=== PATIENT | female | born 1950 | race Hispanic/Latino ===

== ENCOUNTER 2017-11-07 14:46 | Outpatient (CLI) | payer MEDICARE, OTHER | END 2017-11-07 14:47 | disposition home or self-care (01) | LOC: BICMAMMO 14:46 | PROVIDERS: ATTEND Family Medicine | DX: Z12.31 Encounter for screening mammogram for malignant neoplasm of breast (principal); Z80.3 Family history of malignant neoplasm of breast | CPT/HCPCS: 77063; 77067 ==

== ENCOUNTER 2018-07-24 13:48 | Outpatient (CLI) | payer MEDICARE, OTHER ==
--- NOTE | 2018-07-24 16:26 | ULT ---
THYROID ULTRASOUND: INDICATION: Thyromegaly. TECHNIQUE: Brito scale color Doppler images were obtained of the thyroid gland. FINDINGS: The right thyroid lobe measures 4.3 x 1.8 x 1.4 cm. The left thyroid lobe measures 4.0 x 1.7 x 1.5 cm. The thyroid isthmus measured 0.5 cm. There is a 0.8 x 0.7 x 0.8 cm mixed echogenicity solid nodule involving the superior pole of the left thyroid gland consistent with a TIRADS 4 lesion. IMPRESSION: TIRADS 4 lesion in the superior pole left thyroid gland. This lesion is less than 1 cm in size. No additional followup is recommended. POS: MARY
== END 2018-07-24 13:49 | disposition home or self-care (01) ==
LOC: SCSULT 13:48
PROVIDERS: ATTEND Family Medicine
DX: E01.0 Iodine-deficiency related diffuse (endemic) goiter (principal); E07.9 Disorder of thyroid, unspecified
CPT/HCPCS: 76536

== ENCOUNTER 2019-01-17 14:38 | Outpatient (CLI) | payer MEDICARE, OTHER ==
--- NOTE | 2019-01-17 16:41 | BD ---
BONE DENSITOMETRY USING DEXA: Date: 01/17/19 HISTORY: Postmenopausal screening for osteoporosis. FINDINGS: Lumbar Spine: BMD (g/cm2) L1 0.700 T-Score: -2.6 Z-Score: -1.0 L2 0.723 T-Score: -2.8 Z-Score: -0.9 L3 0.858 T-Score: -2.1 Z-Score: -0.1 L4 0.794 T-Score: -2.4 Z-Score: -0.4 L1-L4 0.772 T-Score: -2.5 Z-Score: -0.6 Femoral Neck: 0.529 T-Score: -2.9 Z-Score: -1.4 Total Femur: 0.708 T-Score: -1.9 Z-Score: -0.6 IMPRESSION: Osteoporosis. POS: CRIS
--- NOTE | 2019-01-22 13:24 | MMO ---
Bilateral MAMMO Bilat Screen [facility]. CLINICAL HISTORY: Patient is 68 years old and is seen for screening. The patient has the following family history of breast cancer: cousin female, malignant (generic). The patient has no personal history of cancer. The patient has a history of right Cyst Aspiration in 1998 - benign. VIEWS: The views performed were: bilateral craniocaudal with tomosynthesis and bilateral mediolateral oblique with tomosynthesis. FILMS COMPARED: The present examination has been compared to prior imaging studies performed at [facility] on 11/07/2017, and at [facility] on 04/22/2016. MAMMOGRAM FINDINGS: There are scattered fibroglandular densities. There are no suspicious masses, suspicious calcifications, or new areas of architectural distortion. IMPRESSION: THERE IS NO MAMMOGRAPHIC EVIDENCE OF MALIGNANCY. A ROUTINE FOLLOW-UP MAMMOGRAM IN 1 YEAR IS RECOMMENDED. THE RESULTS OF THIS EXAM WERE SENT TO THE PATIENT. ACR BI-RADS Category 1 - Negative MAMMOGRAPHY NOTE: 1. A negative mammogram report should not delay a biopsy if a dominant of clinically suspicious mass is present. 2. Approximately 10% to 15% of breast cancers are not detected by mammography. 3. Adenosis and dense breasts may obscure an underlying neoplasm.
== END 2019-01-17 14:39 | disposition home or self-care (01) ==
LOC: BICMAMMO 14:38
PROVIDERS: ATTEND Family Medicine
DX: Z12.31 Encounter for screening mammogram for malignant neoplasm of breast (principal); M85.80 Other specified disorders of bone density and structure, unspecified site; M81.0 Age-related osteoporosis without current pathological fracture; Z80.3 Family history of malignant neoplasm of breast; Z98.890 Other specified postprocedural states
CPT/HCPCS: 77063; 77067; 77080

== ENCOUNTER 2020-11-27 12:57 | Outpatient (CLI) | payer MEDICARE, OTHER | END 2020-11-27 12:58 | disposition home or self-care (01) | LOC: BICMAMMO 12:57 | PROVIDERS: ATTEND Family Medicine | DX: Z12.31 Encounter for screening mammogram for malignant neoplasm of breast (principal); Z80.3 Family history of malignant neoplasm of breast | CPT/HCPCS: 77063; 77067 ==

== ENCOUNTER 2020-12-23 12:06 | Outpatient (CLI) | payer MEDICARE, OTHER ==
[2020-12-24 05:21] LABS: SARS-CoV-2 PCR by NAA Not Detected (NotDetected)
== END 2020-12-23 12:07 | disposition home or self-care (01) ==
LOC: LABBT 12:06
PROVIDERS: ATTEND Family Medicine
DX: Z01.812 Encounter for preprocedural laboratory examination (principal); Z20.822 Contact with and (suspected) exposure to COVID-19
CPT/HCPCS: U0003; U0005; 87635

== ENCOUNTER 2020-12-26 13:45 | Outpatient (CLI) | payer MEDICARE, OTHER ==
--- NOTE | 2020-12-26 17:05 | RAD ---
Barium swallow: 12/26/2020 COMPARISON: None HISTORY: Dysphasia FINDINGS: The emt i/85 radiograph demonstrates mild increased linear interstitial density with no pneumo thorax, pleural fluid, focal consolidation, or alveolar edema. A double contrast barium esophagram is performed. The esophagus appears normal in course and contour. Peristalsis appears normal. No gastroesophageal reflux could be elicited on this exam. No evidence for a hiatal hernia. The patient ingested a barium tablet which traverses the gastroesophageal junction without delay. Exposure data: 0.8 minutes of fluoroscopic time, 5.4 jeffries per centimeter squared IMPRESSION: Grossly unremarkable barium swallow.
== END 2020-12-26 13:46 | disposition home or self-care (01) ==
LOC: RAD 13:45
PROVIDERS: ATTEND Family Medicine
DX: R13.10 Dysphagia, unspecified (principal)
CPT/HCPCS: 74220

== ENCOUNTER 2021-02-17 10:59 | Outpatient (CLI) | payer OTHER | END 2021-02-17 11:00 | disposition home or self-care (01) | LOC: DTY/OP 10:59 | PROVIDERS: ATTEND Family Medicine | DX: E78.5 Hyperlipidemia, unspecified (principal); I10 Essential (primary) hypertension | CPT/HCPCS: 97802 ==

== ENCOUNTER 2022-04-14 14:54 | Outpatient (CLI) | payer MEDICARE, OTHER | END 2022-04-14 14:55 | disposition home or self-care (01) | LOC: BICMAMMO 14:54 | PROVIDERS: ATTEND Family Medicine | DX: Z12.31 Encounter for screening mammogram for malignant neoplasm of breast (principal); Z98.890 Other specified postprocedural states; Z80.3 Family history of malignant neoplasm of breast | CPT/HCPCS: 77063; 77067 ==

== ENCOUNTER 2023-05-26 13:52 | Outpatient (CLI) | payer MEDICARE, OTHER | END 2023-05-26 13:53 | disposition home or self-care (01) | LOC: ULT 13:52 | PROVIDERS: ATTEND Nurse Practitioner Family | DX: R55 Syncope and collapse (principal) | CPT/HCPCS: 93880 ==

== ENCOUNTER 2023-10-31 12:12 | Inpatient (IN) | payer OTHER, MEDICARE ==
[~2023-10-31 12:12] MED LIST: Iopamidol-370 76% 500 ML MDV (1 ML CHARGE) ONE
[2023-10-31] MEDS ORDERED: Ondansetron PF 4 MG/2 ML Vial ONE (12:19)
[2023-10-31] MEDS ORDERED: Morphine 4 MG/ML VIAL ONE ×2 (12:19→15:15)
[2023-10-31 12:34] LABS: #Basophils 0.1 thou/uL (0.0-0.2); #Eosinphils 0.1 thou/uL (0.0-0.7); #Monocytes 0.5 thou/uL (0.11-0.59); #Neutrophils 6.1 thou/uL (1.40-6.50); %Basophils 0.6 % (0.0-1.0); %Eosinophils 0.6 % (0.0-10.0); %Lymphocytes 33.4 % (21.0-51.0); %Monocytes 4.9 % (0.0-10.0); %Neutrophils 59.1 % (42.0-75.0); Hematocrit 39.2 % (36.0-47.0); Hemoglobin 13.1 g/dL (12.0-16.0); Mean Corpuscular HGB CONC 33.4 g/dL (32.0-36.0); Mean Corpuscular Hemoglobin 31.3 pg (27.0-31.0); Mean Corpuscular Volume 93.6 fl (78.0-98.0); Mean Platelet Volume 10.8 fL (7.4-10.4); Platelet Count 152 10x3/uL (130-400); RBC Distribution Width 12.8 % (11.5-14.5); Red Blood Cell (RBC) Count 4.19 mill/uL (4.20-5.40); White Blood Cell (WBC) Count 10.2 10x3/uL (4.8-10.8)
[2023-10-31 12:58] LABS: INR-International Normal Ratio 0.9; Prothrombin Time 12.1 sec (12.0-14.7)
[2023-10-31 12:59] LABS: PTT 25.5 sec (22.9-36.1)
[2023-10-31 13:00] LABS: ALT (SGPT) 14 U/L (8-55); AST (SGOT) 27 U/L (5-34); Albumin 3.9 g/dL (3.4-4.8); Alcohol Less than 10.0 mg/dL (Less than 10); Alkaline Phosphatase 51 U/L (40-110); Anion Gap 16 mmol/L (10-20); BUN (Urea Nitrogen) 13 mg/dL (9.8-20.1); Bilirubin, Total 0.7 mg/dL (0.2-1.2); Calc. Creatinine Clearance 0 mL/min (70-130); Calcium 9.2 mg/dL (7.8-10.44); Carbon Dioxide 16 mmol/L (23-31); Chloride 107 mmol/L (98-107); Estimated GFR 88; Globulin 2.8 g/dL (2.4-3.5); Glucose 126 mg/dL (83-110); Lipase 37 U/L (8-78); Protein, Total 6.7 g/dL (5.8-8.1); Sodium 135 mmol/L (136-145)
[2023-10-31] MEDS ORDERED: traMADol HCl 50 MG TAB PO PRN (15:25)
[2023-10-31] MEDS ORDERED: Acetaminophen 325 MG TAB PO PRN (15:25)
[2023-10-31] MEDS ORDERED: Dextrose 5% in Water 1,000 ML IV PRN (15:25)
[2023-10-31] MEDS ORDERED: HYDROcodone/Acetaminophen 5/325 mg Tablet PO PRN (15:25)
[2023-10-31] MEDS ORDERED: Glucagon 1 MG/ML KIT IM PRN (15:25)
[2023-10-31] MEDS ORDERED: Dextrose 50% Abboject 50 ML SYRINGE SLOW IVP PRN (15:25)
[2023-10-31] MEDS ORDERED: Rib Fracture Protocol PO SCH ×2 (15:30→17:30)
[2023-10-31 15:33] LABS: Lactic Acid 1.1 mmol/L (0.5-2.2)
[2023-10-31] MEDS ORDERED: Lidocaine 4% Patch TD SCH (15:48)
[2023-10-31 16:01] LABS: Troponin I Less than 0.010 ng/mL (< 0.028)
[2023-10-31] MEDS ORDERED: hydrALAZINE 20 MG/ML VIAL SLOW IVP PRN (16:15)
[2023-10-31] MEDS ORDERED: Cyclobenzaprine 10 MG TAB PO PRN (17:23)
[2023-10-31 17:27] VITALS: BMI 26.4
[2023-10-31] MEDS: traMADol HCl 50 MG TAB PO SCH (18:30)
[2023-10-31] MEDS: Lidocaine 4% Patch TD SCH (18:30)
[2023-10-31] MEDS: Acetaminophen 500 MG TAB PO SCH (18:30)
[2023-10-31] MEDS: Ipratropium/Albuterol 3 ML NEB NEB SCH ×2 (19:41→22:26)
[2023-10-31] MEDS: Gabapentin 100 MG CAP PO SCH (22:48)
[2023-10-31] MEDS: Ibuprofen 200 MG TAB PO SCH (22:48)
[2023-11-01] MEDS: Acetaminophen 500 MG TAB PO SCH ×5 (00:42→23:17)
[2023-11-01] MEDS: traMADol HCl 50 MG TAB PO SCH ×5 (00:43→23:18)
[2023-11-01] MEDS: Ibuprofen 200 MG TAB PO SCH ×3 (06:29→23:17)
[2023-11-01] MEDS: Transdermal Patch Removal TOP SCH (06:30)
[2023-11-01 08:14] LABS: #Eosinphils 0.1 thou/uL (0.0-0.7); #Monocytes 0.7 thou/uL (0.11-0.59); %Basophils 0.3 % (0.0-1.0); %Eosinophils 0.7 % (0.0-10.0); %Lymphocytes 20.1 % (21.0-51.0); %Monocytes 9.3 % (0.0-10.0); %Neutrophils 69.3 % (42.0-75.0); Hematocrit 36.8 % (36.0-47.0); Hemoglobin 12.3 g/dL (12.0-16.0); Mean Corpuscular HGB CONC 33.4 g/dL (32.0-36.0); Mean Corpuscular Hemoglobin 31.1 pg (27.0-31.0); Mean Corpuscular Volume 93.2 fl (78.0-98.0); Platelet Count 183 10x3/uL (130-400); RBC Distribution Width 12.8 % (11.5-14.5); Red Blood Cell (RBC) Count 3.95 mill/uL (4.20-5.40); White Blood Cell (WBC) Count 7.2 10x3/uL (4.8-10.8)
[2023-11-01 08:55] LABS: Anion Gap 11 mmol/L (10-20); BUN (Urea Nitrogen) 7 mg/dL (9.8-20.1); Calc. Creatinine Clearance 77 mL/min (70-130); Carbon Dioxide 25 mmol/L (23-31); Chloride 106 mmol/L (98-107); Estimated GFR 94; Glucose 90 mg/dL (83-110); Potassium 3.7 mmol/L (3.5-5.1); Sodium 138 mmol/L (136-145)
[2023-11-01] MEDS ORDERED: Lidocaine 4% Patch TD SCH (09:00)
[2023-11-01] MEDS ORDERED: FLU VACC QS2023(65UP)/MF59C/PF 60 MCG/0.5 ML SYRINGE IM ONE (09:00)
[2023-11-01] MEDS: Enoxaparin 30 MG (0.3 mL) SYRINGE SC SCH (10:28)
[2023-11-01] MEDS: Gabapentin 100 MG CAP PO SCH ×3 (10:31→20:03)
[2023-11-01] MEDS: Ipratropium/Albuterol 3 ML NEB NEB SCH ×3 (10:50→19:25)
[2023-11-01] MEDS: Lidocaine 4% Patch TD SCH (17:10)
[2023-11-02] MEDS: Ipratropium/Albuterol 3 ML NEB NEB SCH ×2 (00:32→08:03)
[2023-11-02] MEDS: Ibuprofen 200 MG TAB PO SCH (05:40)
[2023-11-02] MEDS: traMADol HCl 50 MG TAB PO SCH ×2 (05:41→11:34)
[2023-11-02] MEDS: Acetaminophen 500 MG TAB PO SCH ×2 (05:41→11:33)
[2023-11-02] MEDS: Transdermal Patch Removal TOP SCH (05:46)
[2023-11-02] MEDS ORDERED: Senokot S 8.6-50 MG TAB PO SCH (09:00)
[2023-11-02] MEDS: Gabapentin 100 MG CAP PO SCH (09:37)
[2023-11-02] MEDS: Enoxaparin 30 MG (0.3 mL) SYRINGE SC SCH (09:38)
[2023-11-02 09:39] VITALS: BP 152/82; TEMP 98
== END 2023-11-02 13:26 | disposition home or self-care (01) | DRG 185 ==
LOC: ERS 12:12 → SJJU 15:00
PROVIDERS: ADMIT Surgery; ATTEND Surgery
DX: S22.42XA Multiple fractures of ribs, left side, initial encounter for closed fracture (principal); E78.5 Hyperlipidemia, unspecified; I10 Essential (primary) hypertension; M81.0 Age-related osteoporosis without current pathological fracture; F41.9 Anxiety disorder, unspecified; F32.A Depression, unspecified; G89.11 Acute pain due to trauma; Z96.652 Presence of left artificial knee joint; V49.9XXA Car occupant (driver) (passenger) injured in unspecified traffic accident, initial encounter; Z98.51 Tubal ligation status; Z98.890 Other specified postprocedural states; Z95.0 Presence of cardiac pacemaker; Z87.891 Personal history of nicotine dependence; Z82.49 Family history of ischemic heart disease and other diseases of the circulatory system
CPT/HCPCS: 36415; 70450; 71045; 71260; 72125; 74177; 80048; 80053; 80307; 83605; 83690; 84484; 85025; 85610; 85730; 86850; 86900; 86901; 90471; 90694; 93005; 94640; 96374; 96375; 96376; G0008; G0390; J1650; J2270; J2405; J7620; Q9967

== ENCOUNTER 2023-11-18 15:44 | Outpatient (CLI) | payer MEDICARE, OTHER | END 2023-11-18 15:45 | disposition home or self-care (01) | LOC: RAD 15:44 | PROVIDERS: ATTEND Specialist | DX: S22.42XD Multiple fractures of ribs, left side, subsequent encounter for fracture with routine healing (principal) | CPT/HCPCS: 71045 ==